=== PATIENT | female | born 1990 | race Caucasian/White ===

== ENCOUNTER 2018-06-16 12:15 | Inpatient (IN) | payer OTHER ==
[~2018-06-16] VITALS: Ht 160 cm; Wt 59.5 kg
[~2018-06-16 12:15] MED LIST: ACET325T14; PRED20TA
[2018-06-16 13:58] LABS: BASOPHILS # (AUTO) 0.02 x10^3/uL (0-0.1); BASOPHILS % (AUTO) 0 % (0-1); EOSINOPHILS # (AUTO) 0.26 x10^3/uL (0-0.4); EOSINOPHILS % (AUTO) 2 % (1-7); LYMPHOCYTES # (AUTO) 1.88 x10^3/uL (1-3.4); LYMPHOCYTES % (AUTO) 16 % (22-44); MD NO; MEAN CORPUSCULAR HEMOGLOBIN 28.2 pg (27.0-34.8); MEAN CORPUSCULAR HGB CONC 32.9 g/dL (32.4-35.8); MEAN CORPUSCULAR VOLUME 85.7 fL (80-100); MEAN PLATELET VOLUME 9.6 fL (7.4-10.4); MONOCYTES # (AUTO) 0.95 x10^3/uL (0.2-0.8); MONOCYTES % (AUTO) 8 % (2-9); NEUTROPHILS # (AUTO) 8.47 x10^3/uL (1.8-6.8); NEUTROPHILS % (AUTO) 73 % (42-75); PLATELET COUNT 199 x10^3/uL (130-400); RED BLOOD COUNT 3.86 x10^6/uL (3.82-5.3); RED CELL DISTRIBUTION WIDTH 14.1 % (9.6-15.2)
[2018-06-16] MEDS ORDERED: INDOMETHACIN 50 MG CAPSULE PO ONE ×2 (14:06→19:45)
[2018-06-16] MEDS ORDERED: INDOMETHACIN 50 MG CAPSULE ONE ×2 (14:13→19:46)
[2018-06-16] MEDS: LACTATED RINGERS 1,000 ML IV SCH ×2 (14:21→19:12)
[2018-06-16 19:33] VITALS: BP 91/53
[2018-06-16] MEDS ORDERED: INDOMETHACIN 25 MG CAPSULE PO SCH (20:00)
[2018-06-16] MEDS: INDOMETHACIN 25 MG CAPSULE PO SCH (20:00)
[2018-06-16] MEDS ORDERED: SODIUM CHLORIDE FLUSH 3ML SYRINGE IVF SCH (21:00)
[2018-06-16] MEDS ORDERED: SODIUM CITRATE/CITRIC ACID 30 ML UDC ONE (21:04)
[2018-06-16] MEDS ORDERED: METOCLOPRAMIDE 5 MG/ML, 2ML ONE (21:04)
[2018-06-16] MEDS ORDERED: EPHEDRINE 50 MG/ML, 1ML ONE (21:05)
[2018-06-16] MEDS ORDERED: EPINEPHRINE 1 MG/ML, 1ML ONE (21:05)
[2018-06-16] MEDS ORDERED: CEFAZOLIN 1,000 MG ONE (21:05)
[2018-06-16] MEDS ORDERED: SODIUM CITRATE/CITRIC ACID 30 ML UDC PO ONE (21:10)
[2018-06-16] MEDS ORDERED: METOCLOPRAMIDE 5 MG/ML, 2ML IV ONE (21:10)
[2018-06-16] MEDS ORDERED: MEPERIDINE/PF 25MG/0.5ML IVPush PRN (21:30)
[2018-06-16] MEDS ORDERED: EPHEDRINE 50 MG/ML, 1ML IVPush PRN (21:30)
[2018-06-16] MEDS ORDERED: OXYcodone 5 MG/5 ML ORAL.SOL UDC PO PRN (21:30)
[2018-06-16] MEDS ORDERED: ONDANSETRON ODT 8 MG PO PRN (21:30)
[2018-06-16] MEDS ORDERED: FENTANYL PF 100 MCG/2ML IV PRN (21:30)
[2018-06-16] MEDS ORDERED: MORPHINE SULFATE 4 MG/ML, 1ML IVPush PRN (21:30)
[2018-06-16] MEDS ORDERED: ONDANSETRON 2MG/ML, 2ML IV PRN (21:30)
[2018-06-17] MEDS ORDERED: INDOMETHACIN 25 MG CAPSULE ONE ×2 (02:05→07:29)
[2018-06-17] MEDS: INDOMETHACIN 25 MG CAPSULE PO SCH ×2 (02:07→07:32)
[2018-06-19] MEDS ORDERED: PREN1TAB10 PO (08:10)
== END 2018-06-17 08:20 | disposition home or self-care (01) | DRG 781 ==
LOC: LDIP 12:15
PROVIDERS: ADMIT Obstetrics & Gynecology; ATTEND Obstetrics & Gynecology
PROC: 0UVC7ZZ Restriction of Cervix, Via Natural or Artificial Opening (ICD-10-PCS; principal; 2018-06-16)
DX: O26.872 Cervical shortening, second trimester (principal); O99.612 Diseases of the digestive system complicating pregnancy, second trimester; K21.9 Gastro-esophageal reflux disease without esophagitis; K58.9 Irritable bowel syndrome, unspecified; O34.32 Maternal care for cervical incompetence, second trimester; F32.9 Major depressive disorder, single episode, unspecified; O99.342 Other mental disorders complicating pregnancy, second trimester; Z3A.21 21 weeks gestation of pregnancy
CPT/HCPCS: 36415; 85025; 86850; 86900; 87491; 87591; G0378; J0171; J0690; J2765; J7120

== ENCOUNTER 2018-10-02 08:02 | Observation (INO) | payer OTHER ==
[~2018-10-02] VITALS: Ht 160 cm; Wt 72.7 kg
[~2018-10-02 08:02] MED LIST changes: +PREN1TAB10 PO
[2018-10-02] MEDS ORDERED: LACTATED RINGERS 1,000 ML IV SCH ×2 (08:10→11:00)
[2018-10-02] MEDS ORDERED: OXYTOCIN 30U/ 0.9% NaCL 500ML 500 ML IV SCH (08:10)
[2018-10-02] MEDS ORDERED: LACTATED RINGERS 1,000 ML IVBOLUS ONE (08:30)
[2018-10-02] MEDS ORDERED: PLEASE ENTER HEIGHT AND WEIGHT MC SCH (08:30)
[2018-10-02 08:57] LABS: BASOPHILS # (AUTO) 0.02 x10^3/uL (0-0.1); BASOPHILS % (AUTO) 0 % (0-1); EOSINOPHILS # (AUTO) 0.16 x10^3/uL (0-0.4); EOSINOPHILS % (AUTO) 2 % (1-7); LYMPHOCYTES % (AUTO) 18 % (22-44); MD NO; MEAN CORPUSCULAR HEMOGLOBIN 27.1 pg (27.0-34.8); MEAN CORPUSCULAR HGB CONC 32.6 g/dL (32.4-35.8); MEAN CORPUSCULAR VOLUME 83.1 fL (80-100); MONOCYTES # (AUTO) 0.75 x10^3/uL (0.2-0.8); MONOCYTES % (AUTO) 8 % (2-9); NEUTROPHILS % (AUTO) 72 % (42-75); PLATELET COUNT 162 x10^3/uL (130-400); RED BLOOD COUNT 4.61 x10^6/uL (3.82-5.3)
[2018-10-02 09:07] VITALS: BP 114/76
[2018-10-02] MEDS ORDERED: PROPOFOL 10 MG/ML, 20ML ONE (09:40)
[2018-10-02] MEDS ORDERED: FENTANYL PF 100 MCG/2ML ONE (09:40)
== END 2018-10-02 12:00 | disposition home or self-care (01) ==
LOC: LDOP 08:02 → LDIP 08:53
PROVIDERS: ADMIT Obstetrics & Gynecology; ATTEND Obstetrics & Gynecology
DX: O34.33 Maternal care for cervical incompetence, third trimester (principal); O99.613 Diseases of the digestive system complicating pregnancy, third trimester; K21.9 Gastro-esophageal reflux disease without esophagitis; K58.9 Irritable bowel syndrome, unspecified; Z3A.36 36 weeks gestation of pregnancy
CPT/HCPCS: 36415; 59025; 59871; 85025; 86850; 86900; G0378; J2704; J3010; J7120; 96360; 96361

== ENCOUNTER 2018-10-03 18:04 | Outpatient (CLI) | payer OTHER ==
[~2018-10-03] VITALS: Ht 160 cm; Wt 72.7 kg
[2018-10-03 18:55] VITALS: BP 108/66
== END 2018-10-03 19:10 | disposition home or self-care (01) ==
LOC: LDOP 18:04
PROVIDERS: ATTEND Obstetrics & Gynecology
DX: O26.893 Other specified pregnancy related conditions, third trimester (principal); Z3A.37 37 weeks gestation of pregnancy
CPT/HCPCS: 59025; 99211; G0463